=== PATIENT | male | born 1950 | race Caucasian/White ===

== ENCOUNTER 2016-04-03 09:57 | Observation (INO) | payer MEDICARE ==
[~2016-04-03] VITALS: Ht 165.1 cm; Wt 78.2 kg
[~2016-04-03 09:57] MED LIST: /PANT40TA PO; /SUCR1TA PO; /WARF25TA PO; ACET65TA PO; ASPI1TAB PO; BENA25CA2 PO; CARAFATE PO; COUM2.5T11 PO; FLOM5CAP PO; LABE10TAB PO; NUCY50TA9 PO; No Historical Meds; OXYC-299 PO; PANT40TA2 PO; PERC5TAB8 PO; VITA200016 PO; VITATAB11 PO
[2016-04-03 10:47] LABS: INR 1.8
[2016-04-03 10:51] LABS: ANION GAP 8 MEQ/L (8-16); BLOOD UREA NITROGEN 31 MG/DL (7-18); CALCIUM LEVEL 8.7 MG/DL (8.8-10.2); CARBON DIOXIDE LEVEL 30 MEQ/L (21-32); CHLORIDE LEVEL 100 MEQ/L (98-107); CREATININE FOR GFR 2.08 MG/DL (0.70-1.30); GLOMERULAR FILTRATION RATE 34.3 (>49); GLUCOSE, FASTING 127 MG/DL (80-110); POTASSIUM SERUM 3.9 MEQ/L (3.5-5.1); SODIUM LEVEL 138 MEQ/L (136-145)
[2016-04-03 10:53] LABS: BASO # 0.1 K/mm3 (0.0-0.2); BASO % 0.4 % (0.0-1.0); EOS # 0.4 K/mm3 (0.0-0.50); EOS % 2.5 % (0.0-3.0); LARGE UNSTAINED CELL # 0.1 K/mm3 (0.0-0.4); LARGE UNSTAINED CELL % 0.4 % (0.0-4.0); MEAN CORPUSCULAR HEMOGLOBIN 28.4 pg (27.0-33.0); MONO % 6.9 % (0.0-5.0); NEUTROPHILS # 11.7 K/mm3 (1.8-7.7); NEUTROPHILS % 82.8 % (36.0-66.0); PLATELET COUNT, AUTOMATED 260 k/mm3 (150-450); WHITE BLOOD COUNT 14.1 K/mm3 (4.0-10.0)
[2016-04-03] MEDS ORDERED: HYDROmorphone HCL 1 MG/ML SYRINGE (J1170) As Ordered ONE ×3 (11:08→14:25)
[2016-04-03] MEDS ORDERED: TRAM50TA2 PO (12:36)
[2016-04-03] MEDS ORDERED: COUM1TAB17 PO (12:36)
[2016-04-03] MEDS ORDERED: DIPH25CA PO (12:36)
[2016-04-03] MEDS ORDERED: VITA400C2 PO (12:36)
[2016-04-03] MEDS ORDERED: BENA25CA4 PO (12:37)
--- NOTE | 2016-04-03 12:38 | REP ---
RIGHT UPPER EXTREMITY DUPLEX VENOUS ULTRASOUND: HISTORY: Swelling, recent surgery, pain. Question venous thrombosis. FINDINGS: There is no evidence of thrombus in the right subclavian, internal jugular, brachial, basilic or cephalic veins. Color flow imaging is homogeneous. The veins are anechoic and compressible. IMPRESSION: No evidence of venous thrombosis right upper extremity. Signed by Gerald Painting MD 04/03/2016 02:28 P
[2016-04-03 12:52] LABS: ERYTHROCYTE SEDIMENTATION RATE 43 mm/hr (0-20)
--- NOTE | 2016-04-03 13:51 | REP ---
RIGHT WRIST SERIES: Four views. HISTORY: Swelling. Comparison right wrist views are from January 10, 2014. FINDINGS: There is moderate dorsal soft tissue swelling over the carpus. There are chronic arthritic changes with radiocarpal narrowing and sclerosis as seen on the 2014 prior study. 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 These findings are unchanged. IMPRESSION: Chronic arthropathy involving the radiocarpal articulation and the intercarpal articulations. 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 Subcortical cysts are seen in the carpal bones as before. There is moderate dorsal carpal swelling. Signed by Gerald Painting MD 04/03/2016 02:28 P
--- NOTE | 2016-04-03 13:53 | REP ---
CHEST X-RAY: Two views. HISTORY: Near-syncope. Comparison study February 05, 2016. FINDINGS: The lungs are well inflated and clear. Pleural angles are sharp. Heart size is normal. Pulmonary vasculature is not increased. No significant bony abnormality is seen. IMPRESSION: No acute disease. Signed by Gerald Painting MD 04/03/2016 02:28 P
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
[2016-04-03] MEDS ORDERED: WARFARIN SOD 5 MG TAB PO SCH (17:00)
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
[2016-04-03 18:45] VITALS: BP 144/92
[2016-04-03] MEDS: traMADol 50 MG TAB PO PRN (18:55)
--- NOTE | 2016-04-03 19:08 | ECGEPIP ---
Stationary ECG Study [facility] - ED Test Date: 2016-04-03 Pat Name: TERRI CHUA Department: Room: [place] [address] Gender: M Top Knitter: ba : 1950 Requested By: Fara Guevara Order Number: [id number] Reading MD: Fara Guevara Measurements Intervals [place] Rate: 85 P: 53 OK: 133 QRS: 23 QRSD: 86 T: 52 QT: 368 QTc: 438 Interpretive Statements SINUS RHYTHM NSTTW ABNORMALITY INCREASED RATE 02/05/16 Electronically Signed On 04-03-2016 19:08:08 EST by Fara Guevara
[2016-04-03] MEDS: PANTOPRAZOLE 40MG TAB (PROTONIX) PO SCH (19:42)
[2016-04-03 20:28] VITALS: BP 158/84
[2016-04-03] MEDS: LABETALOL 100 MG TAB PO SCH (21:00)
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
[2016-04-03] MEDS: ACETAMINOPHEN TAB 650MG DOSE (2X325MG) PO PRN (21:54)
[2016-04-03] MEDS: CEFTAROLINE FOSAMIL 400 MG in D5W MINI-BAG PLUS 50 ML IV SCH (23:18)
[2016-04-03 23:59] VITALS: BP 139/82
[2016-04-04] MEDS ORDERED: SLF 3 ML SYR IV PRN (02:00)
[2016-04-04 04:42] LABS: BASO % 0.3 % (0.0-1.0); EOS # 0.2 K/mm3 (0.0-0.50); EOS % 2.2 % (0.0-3.0); LARGE UNSTAINED CELL # 0.1 K/mm3 (0.0-0.4); LARGE UNSTAINED CELL % 0.9 % (0.0-4.0); LYMPH # 1.1 K/mm3 (1.5-4.5); LYMPH % 9.4 % (24.0-44.0); MEAN CORPUSCULAR HEMOGLOBIN 27.5 pg (27.0-33.0); MEAN CORPUSCULAR HGB CONC 32.7 g/dl (32.0-36.5); MEAN CORPUSCULAR VOLUME 84.2 fl (80.0-96.0); MONO # 0.8 K/mm3 (0.0-0.8); MONO % 7.5 % (0.0-5.0); NEUTROPHILS # 8.6 K/mm3 (1.8-7.7); NEUTROPHILS % 79.7 % (36.0-66.0); PLATELET COUNT, AUTOMATED 242 k/mm3 (150-450); RED CELL DISTRIBUTION WIDTH 14.1 % (11.5-14.5); WHITE BLOOD COUNT 10.7 K/mm3 (4.0-10.0)
[2016-04-04 04:58] LABS: ALBUMIN 2.9 GM/DL (3.2-5.2); ANION GAP 10 MEQ/L (8-16); BLOOD UREA NITROGEN 28 MG/DL (7-18); CALCIUM LEVEL 8.3 MG/DL (8.8-10.2); CARBON DIOXIDE LEVEL 26 MEQ/L (21-32); CHLORIDE LEVEL 103 MEQ/L (98-107); GLOMERULAR FILTRATION RATE 35.9 (>49); GLUCOSE, FASTING 132 MG/DL (80-110); INR 1.68; PHOSPHORUS LEVEL 3.8 MG/DL (2.5-4.9); POTASSIUM SERUM 3.8 MEQ/L (3.5-5.1); SODIUM LEVEL 139 MEQ/L (136-145)
[2016-04-04 05:46] VITALS: BP 137/72
[2016-04-04] MEDS: SLF 3 ML SYR IV SCH ×3 (05:49→21:00)
[2016-04-04] MEDS: traMADol 50 MG TAB PO PRN ×3 (05:50→16:51)
[2016-04-04 08:00] VITALS: BP 124/74
[2016-04-04] MEDS: TAMSULOSIN 0.4 MG CAP PO SCH (08:21)
[2016-04-04] MEDS: VITAMIN D 1,000 INTERNATIONAL UNITS TABLET PO SCH (08:21)
[2016-04-04] MEDS: VITAMIN E 400 INTERNATIONAL UNITS CAP PO SCH ×2 (08:21→09:00)
[2016-04-04] MEDS: PANTOPRAZOLE 40MG TAB (PROTONIX) PO SCH (08:21)
[2016-04-04] MEDS: LABETALOL 100 MG TAB PO SCH ×2 (08:21→21:00)
[2016-04-04] MEDS: predniSONE 20 MG TAB PO SCH (09:23)
[2016-04-04] MEDS: ACETAMINOPHEN TAB 650MG DOSE (2X325MG) PO PRN ×2 (09:25→21:01)
[2016-04-04 10:30] VITALS: BP 111/62
[2016-04-04] MEDS: CEFTAROLINE FOSAMIL 400 MG in D5W MINI-BAG PLUS 50 ML IV SCH (11:48)
[2016-04-04 14:00] VITALS: BP 135/75
--- NOTE | 2016-04-04 14:59 | REP ---
MRI STUDY LEFT WRIST WITHOUT CONTRAST: HISTORY: Left hand and wrist pain swelling and tenderness. Question abscess. Technique: Axial and coronal images were acquired. The patient was unable to tolerate further imaging and declined intravenous gadolinium. Axial T2 STIR and T1 spin echo and coronal T2 STIR and T1 spin echo images were accomplished. MRI FINDINGS: Cortical and medullary bone signal intensity are normal. There are is an erosion at the dorsal aspect of the distal radius. There is another at the proximal end of the first metacarpal at the MCP joint. There are subcortical cysts or other erosive changes noted in the carpal bones elsewhere. There is mild marrow edema in the capitate and navicular bone. No fracture is seen. There is widening of the navicular lunate ligament space. There is fluid in the distal radioulnar joint mild in degree. There is no evidence of abscess. There is some synovial hypertrophy at the radiocarpal articulation most pronounced at the volar aspect of the wrist. No significant tendon sheath effusion is seen. No evidence of osteomyelitis. IMPRESSION: Evidence of chronic erosive arthropathy. Some synovial hypertrophy seen. No evidence of abscess or osteomyelitis. Signed by Gerald Painting MD 04/04/2016 03:10 P
[2016-04-04] MEDS ORDERED: WARFARIN SOD 7.5 MG TAB PO SCH (17:00)
--- NOTE | 2016-04-04 17:55 | IPN ---
DATE: 04/04/2016 SUBJECTIVE: The patient is seen and examined in the room today. The patient continues to have significant pain of the right hand to the extent that the patient cannot move the right hand at all. Even mild touch or pressure causes significant tenderness. The patient also noted have intermittent pain radiating from the right shoulder down to the right elbow. The patient denies any history of gout, denies any significant history of autoimmune disease. The patient never had a similar symptom in the past. The patient was down in the MRI suite previously; however, due to the involuntary limb movement, the patient was not able to tolerate the MRI. OBJECTIVE: VITAL SIGNS: Temperature is 97.4, pulse 79, respirations 18, blood pressure 111/62, pulse oximetry 95% on room air. GENERAL: Moderate distress secondary to the right hand swelling and erythema and pain. The patient is alert and oriented times three. HEENT: Normocephalic, atraumatic. Extraocular motor grossly intact. CARDIOVASCULAR: Positive S1, S2. Regular rate. LUNGS: Clear to auscultation bilaterally. ABDOMEN: Soft, nontender, nondistended. Bowel sounds present. No rebound, no guarding. EXTREMITIES: Severe pain to palpation of the right hand around the right wrist and the right fingers. Positive significant erythema noted. No obvious fluctuance was able to be palpated. There is point tenderness around the posterior right shoulder. No lower extremity edema. No sign of cyanosis. LABORATORY DATA: WBC is 10.7, hemoglobin 10.4, hematocrit 31.7, platelet count 242. Sodium is 139, potassium 3.8, chloride 103, carbon dioxide 26, BUN 28, creatinine 2, GFR is 35.9, fasting glucose 132, calcium 8.3, phosphorus 3.8. Total CK is 40, troponin I is less than 0.02. C-reactive protein is 16.4. Albumin 2.9. PT is 19.9, INR is 1.68. MICROBIOLOGY: Rheumatoid factor is 116. Anti-CCP level is pending. LATANYA level is pending. Lyme disease screening is pending. Blood culture is pending times two sets. ASSESSMENT AND PLAN: 1. Right hand swelling and erythema. Due to concern for infection, the patient is empirically started on a Teflaro. The patient has elevated white blood cells (WBC), erythrocyte sedimentation rate (ESR), and C-reactive protein (CRP). The patient also has an elevated rheumatoid factor. Currently we are awaiting for confirmatory tests for anti-cyclic citrullinated peptide (CCP) to rule in rheumatoid arthritis. The patient's presentation includes a differential of gout versus septic arthritis, rheumatoid arthritis, Lyme disease. We will achieve pain control with Tylenol. The patient was given a short course of steroids. The patient had recurrence of symptoms previously and patient stated the prednisone significant benefit to his pain and swelling. Once we get the pain in better control, we will attempt an MRI of the hand and wrist again. I will consult orthopedic surgery for assistance. 2. Deep venous thrombosis (DVT) of the right upper extremity. The patient has a subtherapeutic international normalized ratio (INR). The patient is on heparin. Repeated ultrasound does not show evidence of the DVT currently. 3. Hypertension. Blood pressure in the satisfactory range. The patient is on labetalol. 4. Benign prostatic hypertrophy (BPH) on Flomax. 5. History of vitamin D deficiency. 6. Degenerative joint disease, status post bilateral hip replacement. 7. History of focal interstitial metaplasia on esophagogastroduodenoscopy (EGD) in 2014. 8. Near syncope secondary to severe pain on the right hand. The patient is being monitored on telemetry for 24 hours. No significant events are reported, but cause of the near syncope due to severe stress. 9. Chronic kidney disease stage III. Continue to monitor. 10. Gastroesophageal reflux disease on proton pump inhibitor (PPI). 11. Deep venous thrombosis (DVT) prophylaxis. The patient will be on heparin bridging; currently warfarin therapeutic. Warfarin dose is being increased.
[2016-04-04] MEDS: HEPARIN SOD (PORCINE) 5000 UNITS/ML VIAL SQ SCH (21:00)
[2016-04-04 22:00] VITALS: BP 120/52
[2016-04-05 06:00] VITALS: BP 110/58
[2016-04-05] MEDS: HEPARIN SOD (PORCINE) 5000 UNITS/ML VIAL SQ SCH ×2 (06:17→14:26)
[2016-04-05] MEDS: SLF 3 ML SYR IV SCH ×2 (06:18→14:27)
[2016-04-05] MEDS: traMADol 50 MG TAB PO PRN ×2 (06:22→12:23)
[2016-04-05 06:55] LABS: BASO % 0.1 % (0.0-1.0); EOS % 0.3 % (0.0-3.0); LARGE UNSTAINED CELL # 0.1 K/mm3 (0.0-0.4); LARGE UNSTAINED CELL % 0.9 % (0.0-4.0); LYMPH # 1.3 K/mm3 (1.5-4.5); LYMPH % 9.3 % (24.0-44.0); MEAN CORPUSCULAR HEMOGLOBIN 27.8 pg (27.0-33.0); MEAN CORPUSCULAR HGB CONC 32.8 g/dl (32.0-36.5); MEAN CORPUSCULAR VOLUME 84.8 fl (80.0-96.0); MONO # 0.6 K/mm3 (0.0-0.8); MONO % 4.8 % (0.0-5.0); NEUTROPHILS % 84.5 % (36.0-66.0); PLATELET COUNT, AUTOMATED 245 k/mm3 (150-450); RED CELL DISTRIBUTION WIDTH 14.3 % (11.5-14.5)
[2016-04-05 06:58] LABS: INR 2.03
[2016-04-05 07:07] LABS: ALBUMIN 2.8 GM/DL (3.2-5.2); CALCIUM LEVEL 8.6 MG/DL (8.8-10.2); CREATININE FOR GFR 1.81 MG/DL (0.70-1.30); GLOMERULAR FILTRATION RATE 40.3 (>49); PHOSPHORUS LEVEL 3.6 MG/DL (2.5-4.9); POTASSIUM SERUM 3.8 MEQ/L (3.5-5.1)
--- NOTE | 2016-04-05 08:31 | CR ---
DATE OF CONSULTATION: 04/04/2016 65-year-old male, he is about 1-1/2 months status post right total hip arthroplasty, complicated, by his report, but upper extremity thrombosis and more recently weakness, twitching and pain, severe searing pain in his right upper extremity. I have been asked to evaluate him for diagnosis of his symptoms of his right upper extremity. He reports the weakness and pain had gotten worse since his diagnosis of a right upper extremity thrombus and was worsening. His primary medical team had given him prednisone, which has already started helping his symptoms. PHYSICAL EXAMINATION : He does have some swelling and twitching throughout his right upper extremity. No redness. No obvious fluctuance or evidence of infection. He is sensate throughout the radial, ulnar, median nerve distribution. His hand is well perfused. He has burning pain in the region of the ulnar styloid and generally around his hand and forearm and up in his shoulder. His inflammatory indices are elevated. 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 RECOMMENDATION: My recommendation at this stage would be continued antiinflammatory medications, such as prednisone and observation therapy with an expectation of complete resolution over time, which is the case for most episodes of brachial neuritis.
[2016-04-05] MEDS: PANTOPRAZOLE 40MG TAB (PROTONIX) PO SCH (08:33)
[2016-04-05 08:34] VITALS: BP 114/64
[2016-04-05] MEDS: VITAMIN E 400 INTERNATIONAL UNITS CAP PO SCH (08:34)
[2016-04-05] MEDS: TAMSULOSIN 0.4 MG CAP PO SCH (08:34)
[2016-04-05] MEDS: predniSONE 20 MG TAB PO SCH (08:34)
[2016-04-05] MEDS: VITAMIN D 1,000 INTERNATIONAL UNITS TABLET PO SCH (08:34)
[2016-04-05] MEDS: LABETALOL 100 MG TAB PO SCH (08:34)
[2016-04-05] MEDS ORDERED: DELT1TAB PO (13:55)
[2016-04-05] MEDS ORDERED: TRAM50TA2 PO (13:55)
[2016-04-05] MEDS ORDERED: MAPA325T2 PO (13:55)
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
--- NOTE | 2016-04-05 21:37 | DSES ---
DATE OF ADMISSION: 04/03/2016 DATE OF DISCHARGE: 04/05/2016 PRIMARY CARE PROVIDER: Eugenie Valencia NP CONSULTANTS: Orthopedic surgeon, Dr. Kelly. PROCEDURES: None. COMPLICATIONS: None. ADMISSION/DISCHARGE DIAGNOSES: 1. Right hand swelling and erythema. 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 2. History of deep venous thrombosis (DVT) of the right upper extremity. 3. Hypertension. 4. Benign prostatic hypertrophy (BPH). 5. History of vitamin D deficiency. 6. Degenerative disc disease, status post bilateral hip placement. 7. History of focal interstitial metaplasia, esophagogastroduodenoscopy (EGD) in 2014. 8. Near-syncope secondary to severe pain from the right hand. 9. Chronic kidney disease, stage III. 10. Gastroesophageal reflux disease. HOSPITALIZATION COURSE: The patient is 65-year-old male, has recent hospitalization for hip placement presented to [facility] on April 03, 2016 after syncope events. The patient's other significant history includes patient's worsening right hand swelling and tenderness to the point that the patient cannot even move his right hand and he cannot move the finger digits. The patient is admitted to cardiac telemetry and started on syncope workup. An MRI of the hand and wrist was ordered, however, due to involuntary reflex and uncontrolled extremity movements, the patient was not able to tolerate the MRI on the first day. Initially the patient is started on empiric antibiotics with Teflaro due to elevated inflammatory markers such as WBC, CRP, and erythrocyte sedimentation rate and due to high probability of inflammatory cause of patient' s presentation, the patient started on a trial of prednisone. Orthopedic team, Dr. Kelly was consulted. 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 Later, the patient's diagnostic workup came back positive for rheumatoid arthritis. Continued to have elevated CRP, ESR and WBC. However, the patient started to show great improvement symptomatically with prednisone after discussion, the patient was determined stable for discharge with recommendation to follow with [facility] care provider within one week and to followup with pending laboratory test such as anti-CCP, LATANYA and Lyme disease. The patient has a history of right upper extremity DVT. The patient has been anticoagulated with warfarin. During this hospitalization, patient had ultrasound done, the patient did have the resolution of right DVT. LABORATORY DATA: WBC 13, hemoglobin 10.4, hematocrit 31.6, platelet count 245. Sodium 141, potassium 3.8, chloride 104, carbon dioxide 27, BUN 30, creatinine 1.8, GFR 40.3, fasting glucose 148. Calcium is 8.6, phosphorous 3.6, C-reactive protein 14.6, albumin 2.8. PT 23, INR is 2.03. Rheumatoid factor is 116. Anti-CCP level is pending. LATANYA screening is pending. Lyme disease screening is pending. MICROBIOLOGY: Blood cultures negative after 24 hours times two sets. IMAGING STUDY: Right upper extremity ultrasound showed no evidence of venous thrombosis. Wrist x-ray: Showed chronic arthropathy involving the radiocarpal articulation and the intercarpal articulation. 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 Subcortical cysts are seen in the carpal bone as before. There is moderate dorsal carpal swelling. Chest x-ray: Showed no acute disease. Upper extremity MRI: Showed evidence of chronic erosive arthropathy. Some synovial hypertrophy. No evidence of abscess or osteomyelitis. DISCHARGE MEDICATION: - Tylenol 650 mg by mouth every 6 hour as needed - prednisone 40 mg by mouth every day for six pills - tramadol 100 mg by mouth every 6 hours as needed for 20 pills - Benadryl 25 mg by mouth every 6 hours as needed for itching - labetalol 100 mg by mouth twice a day - pantoprazole 40 mg by mouth every day - Flomax 0.4 mg by mouth every day - vitamin D 2000 units by mouth every day - vitamin E 400 units by mouth every day - warfarin 5 mg by mouth nightly DISCHARGE INSTRUCTIONS: Discontinue lines. Discharge home. Activity as tolerated. Low salt diet as tolerated. Patient should followup with primary care provider Eugenie Valencia within one week to review all the diagnostic tests. The patient recommended to continue taking the prednisone and adjusted by the primary care provider. The patient can take as needed NSAID. Due to the chronic kidney disease, Tylenol was used and patient was advised to avoid nephrotoxic medications. DISCHARGE CONDITION: Stable. TIME SPENT ON DISCHARGE: Greater than 30 minutes. MTDD
[2016-04-07 00:06] LABS: Lyme Disease IgG/IgM Antibodie <0.91 ISR (0.00-0.90); Lyme Disease IgM Ab Quantitati <0.80 index (0.00-0.79)
== END 2016-04-05 14:50 | disposition home or self-care (01) ==
LOC: M ED 09:57 → M ED INP 14:30 → M MS5PR 17:08 → M PCU 18:38 → M MS5PR 04-04 10:18
PROVIDERS: ADMIT Internal Medicine; ATTEND Internal Medicine
DX: M79.89 Other specified soft tissue disorders (principal); R55 Syncope and collapse; Z98.890 Other specified postprocedural states; Z96.643 Presence of artificial hip joint, bilateral; Z86.718 Personal history of other venous thrombosis and embolism; M25.541 Pain in joints of right hand; I12.9 Hypertensive chronic kidney disease with stage 1 through stage 4 chronic kidney disease, or unspecified chronic kidney disease; E55.9 Vitamin D deficiency, unspecified; M19.90 Unspecified osteoarthritis, unspecified site; N18.3 Chronic kidney disease, stage 3 (moderate); K21.9 Gastro-esophageal reflux disease without esophagitis; Z87.19 Personal history of other diseases of the digestive system; N40.0 Benign prostatic hyperplasia without lower urinary tract symptoms; Z79.899 Other long term (current) drug therapy
CPT/HCPCS: 36415; 71020; 73110; 73218; 73221; 80048; 80069; 82550; 82553; 84443; 84484; 84550; 85025; 85610; 85652; 85730; 86038; 86140; 86200; 86431; 86617; 87040; 93005; 93971; 96372; 96374; 96375; 96376; 97162; 99285; G0378; G8978; G8979; G8980; J1170

== ENCOUNTER → 2016-05-21 | Outpatient (REF) | payer MEDICARE ==
[~2016-05-21] MED LIST changes: +BENA25CA4 PO; +COUM1TAB17 PO; +DELT1TAB PO; +DIPH25CA PO; +MAPA325T2 PO; +TRAM50TA2 PO; +VITA400C2 PO
== END ==
LOC: M LAB REF 13:34
PROVIDERS: ATTEND Physician Assistant
DX: J02.9 Acute pharyngitis, unspecified (principal); S16.1XXA Strain of muscle, fascia and tendon at neck level, initial encounter; X58.XXXA Exposure to other specified factors, initial encounter; Y92.9 Unspecified place or not applicable; Y93.9 Activity, unspecified; Y99.9 Unspecified external cause status

== ENCOUNTER → 2016-12-02 | Outpatient (CLI) | payer MEDICARE ==
[~2016-12-02] MED LIST changes: -COUM2.5T11 PO; +COUM2.5T17 PO; +NUCY50TA6 PO; -NUCY50TA9 PO; +OXYC-141 PO; -OXYC-299 PO; -VITA400C2 PO; +VITA400C7 PO
--- NOTE | 2016-12-02 10:54 | REP ---
UNILATERAL RIGHT RIBS/PA CHEST, FIVE VIEWS: HISTORY: Pain. COMPARISON: 04/03/2016. The lungs are clear. The heart is normal in size. The pulmonary vasculature is normal in appearance. The bony structure is intact. IMPRESSION: No acute disease. Signed by Domo Hawkins MD 12/02/2016 10:55 A
== END ==
LOC: M WUC 10:12
PROVIDERS: ATTEND Nurse Practitioner Adult Health
DX: R07.89 Other chest pain (principal)

== ENCOUNTER → 2017-03-02 | Outpatient (REF) | payer MEDICARE ==
[2017-03-02 14:17] LABS: URIC ACID 4.9 MG/DL (3.5-7.2)
== END ==
LOC: M LAB REF 13:25
DX: M25.50 Pain in unspecified joint (principal)
CPT/HCPCS: 84550

== ENCOUNTER → 2017-06-14 | Outpatient (REF) | payer MEDICARE ==
[2017-06-14 17:51] LABS: PTH INTACT 65.3 PG/ML (18.5-88.0)
== END ==
LOC: M LAB REF 16:44
DX: N18.3 Chronic kidney disease, stage 3 (moderate) (principal)
CPT/HCPCS: 84100

== ENCOUNTER → 2018-07-07 | Outpatient (CLI) | payer MEDICARE ==
[~2018-07-07] MED LIST changes: -/PANT40TA PO; -/SUCR1TA PO; -/WARF25TA PO; -ASPI1TAB PO; +ASPI81TA26 PO; +COUM1TAB18 PO; +FLOM0.4C39 PO; -FLOM5CAP PO; +NUCY50TA19 PO; -NUCY50TA6 PO; -PANT40TA2 PO; +PANT40TA3 PO; +PROT1TAB2 PO; +SUCR1TAB56 PO
[2018-07-07 09:36] LABS: INR 1.03; PROTHROMBIN TIME 13.6 SECONDS (12.1-14.4)
[2018-07-07 09:37] LABS: PARTIAL THROMBOPLASTIN TIME 26.4 SECONDS (25.4-37.6)
[2018-07-07 09:40] LABS: COLLAGEN EPINEPHRINE 121 SECONDS (74-162)
== END ==
LOC: M LAB 08:55
PROVIDERS: ATTEND Physical Medicine & Rehabilitation
DX: Z01.812 Encounter for preprocedural laboratory examination (principal); Z79.01 Long term (current) use of anticoagulants

== ENCOUNTER → 2018-09-01 | Outpatient (REF) | payer MEDICARE ==
[2018-09-01 13:42] LABS: AMPHETAMINES URINE REFLEX NEGATIVE (NEGATIVE); BARBITURATES URINE REFLEX NEGATIVE (NEGATIVE); BENZODIAZEPINES URINE REFLEX NEGATIVE (NEGATIVE); CANNABINOIDS URINE REFLEX NEGATIVE (NEGATIVE); COCAINE METABOLITE URINE REFLE NEGATIVE (NEGATIVE); METHADONE URINE REFLEX NEGATIVE (NEGATIVE); PHENCYCLIDINE URINE REFLEX NEGATIVE (NEGATIVE)
[2018-09-04 07:45] LABS: OPIATES URINE REFLEX PENDING CONFIRMATION (NEGATIVE)
[2018-09-06 14:29] LABS: Codeine Positive (.); GC Codeine >10000 ng/mL (Cutoff=200); GC Morphine 1588 ng/mL (Cutoff=200); Morphine Positive (.); Opiates Positive (.)
== END ==
LOC: M LABDRAW1 12:37
PROVIDERS: ATTEND Physical Medicine & Rehabilitation
DX: M43.17 Spondylolisthesis, lumbosacral region (principal); Z79.01 Long term (current) use of anticoagulants; Z79.899 Other long term (current) drug therapy
CPT/HCPCS: 80307; G0480

== ENCOUNTER → 2018-09-12 | Outpatient (REF) | payer MEDICARE ==
[~2018-09-12] MED LIST changes: -DIPH25CA PO; +DIPH25CA32 PO
[2018-09-12 17:16] LABS: PHOSPHORUS LEVEL 3.4 MG/DL (2.5-4.9); URIC ACID 5.7 MG/DL (3.5-7.2)
[2018-09-12 17:54] LABS: PTH INTACT 71.8 PG/ML (18.5-88.0)
== END ==
LOC: M LAB REF 16:42
PROVIDERS: ATTEND Nurse Practitioner Adult Health
DX: M25.50 Pain in unspecified joint (principal); N18.3 Chronic kidney disease, stage 3 (moderate); N25.81 Secondary hyperparathyroidism of renal origin

== ENCOUNTER → 2020-01-15 | Outpatient (REF) | payer MEDICARE ==
[~2020-01-15] MED LIST changes: -MAPA325T2 PO; +MAPA325T8 PO; +PANT40TA29 PO; -PANT40TA3 PO
== END ==
LOC: M LAB REF 12:12
PROVIDERS: ATTEND Nurse Practitioner Adult Health
DX: I12.9 Hypertensive chronic kidney disease with stage 1 through stage 4 chronic kidney disease, or unspecified chronic kidney disease (principal)

== ENCOUNTER → 2021-07-03 | Outpatient (REF) | payer MEDICARE ==
[~2021-07-03] MED LIST changes: +LABE100T4 PO; -LABE10TAB PO
[2021-07-03 17:42] LABS: TOTAL PROTEIN 6.5 GM/DL (6.4-8.2)
== END ==
LOC: M LAB REF 16:42
PROVIDERS: ATTEND Internal Medicine Nephrology
DX: N18.4 Chronic kidney disease, stage 4 (severe) (principal)

== ENCOUNTER → 2022-07-21 | Outpatient (REF) | payer MEDICARE ==
[~2022-07-21] MED LIST changes: +DIPH-435 PO; -DIPH25CA32 PO; -LABE100T4 PO; +LABE100T6 PO
== END ==
LOC: M LAB REF 12:32
PROVIDERS: ATTEND Nurse Practitioner Adult Health
DX: N25.81 Secondary hyperparathyroidism of renal origin (principal); N18.4 Chronic kidney disease, stage 4 (severe)

== ENCOUNTER → 2022-09-27 | Outpatient (CLI) | payer MEDICARE | LOC: M RAD 17:21 | PROVIDERS: ATTEND Student in an Organized Health Care Education/Training Program | DX: S51.832A Puncture wound without foreign body of left forearm, initial encounter (principal); M19.032 Primary osteoarthritis, left wrist; X58.XXXA Exposure to other specified factors, initial encounter; Y92.9 Unspecified place or not applicable; Y93.9 Activity, unspecified; Y99.9 Unspecified external cause status ==

== ENCOUNTER → 2023-03-10 | Outpatient (REF) | payer MEDICARE ==
[2023-03-10 19:40] LABS: FERRITIN 217.6 NG/ML (10.5-307.3)
== END ==
LOC: M LAB REF 16:19
PROVIDERS: ATTEND Internal Medicine
DX: D64.9 Anemia, unspecified (principal)

== ENCOUNTER → 2023-08-02 | Outpatient (REF) | payer MEDICARE ==
[~2023-08-02] MED LIST changes: +CLOP75TA2 PO; +FAMO1TAB11 PO; +MAGN400T2 PO; +METO1TAB33 PO; +NITR0.4S14; +PRAV20TA2 PO; +ROSU20TA61 PO; +TIZA2TA PO; +VITA100093 PO; +VITA400T26 PO
[2023-08-02 19:57] LABS: PERCENT SATURATION 34.7 % (19.7-50.0)
[2023-08-02 20:00] LABS: FERRITIN 126.3 NG/ML (10.5-307.3)
== END ==
LOC: M LAB REF 18:22
PROVIDERS: ATTEND Internal Medicine
DX: D64.9 Anemia, unspecified (principal)

== ENCOUNTER 2023-08-08 08:45 | Day surgery (SDC) | payer MEDICARE ==
[~2023-08-08] VITALS: Ht 165.1 cm; Wt 75.3 kg
[~2023-08-08 08:45] MED LIST changes: +NS 1,000 ML IV ONE
[2023-08-08] MEDS ORDERED: LIDOCAINE 2% 100MG/5ML SDV (FOR ANES.) As Ordered ONE (08:51)
[2023-08-08] MEDS ORDERED: propofoL 200 MG/20 ML VIAL As Ordered ONE (08:51)
[2023-08-08 11:00] VITALS: BP 111/59; TEMP 96.8; O2SAT 96
== END 2023-08-08 11:32 | disposition home or self-care (01) ==
LOC: M OPP 08:45
PROVIDERS: ATTEND Internal Medicine Gastroenterology
DX: Z12.11 Encounter for screening for malignant neoplasm of colon (principal); Z86.010 Personal history of colon polyps; K64.0 First degree hemorrhoids; K57.30 Diverticulosis of large intestine without perforation or abscess without bleeding; D12.8 Benign neoplasm of rectum; K22.89 Other specified disease of esophagus; K22.70 Barrett's esophagus without dysplasia; F17.220 Nicotine dependence, chewing tobacco, uncomplicated; Z79.82 Long term (current) use of aspirin; Z79.899 Other long term (current) drug therapy; Z95.5 Presence of coronary angioplasty implant and graft; Z88.5 Allergy status to narcotic agent; I25.10 Atherosclerotic heart disease of native coronary artery without angina pectoris; Z86.74 Personal history of sudden cardiac arrest

== ENCOUNTER 2024-10-15 06:17 | Emergency (ER) | payer MEDICARE ==
[~2024-10-15] VITALS: Ht 165.1 cm; Wt 73.0 kg
[~2024-10-15 06:17] MED LIST changes: +ERYT5OIN25 OP; -FLOM0.4C39 PO; -NS 1,000 ML IV ONE; -PRAV20TA2 PO; +PRAV20TA78 PO; -ROSU20TA61 PO; +ROSU20TA86 PO; +TAMS-18 PO
[2024-10-15 06:19] VITALS: TEMP 97.1
[2024-10-15 07:15] LABS: BASO # 0.1 10^3/uL (0.0-0.2); BASO % 0.8 % (0.0-1.0); EOS # 0.2 10^3/uL (0.0-0.5); EOS % 1.9 % (0.0-3.0); LYMPH # 0.8 10^3/uL (1.5-5.0); LYMPH % 10.2 % (24.0-44.0); MONO # 0.4 10^3/uL (0.0-0.8); MONO % 5.5 % (2.0-8.0); NEUTROPHILS # 6.3 10^3/uL (1.5-8.5); NEUTROPHILS % 81.2 % (36.0-66.0); PLATELET COUNT, AUTOMATED 189 10^3/uL (150-450)
[2024-10-15 07:40] LABS: CPK CREATINE PHOSPHOKINASE 490 U/L (46-171)
[2024-10-15 07:41] LABS: ALT/SGPT 28 U/L (7.0-40); AST/SGOT 30 U/L (<34); CALCIUM LEVEL 8.4 MG/DL (8.3-10.6); CARBON DIOXIDE LEVEL 23 MMOL/L (20-31); CHLORIDE LEVEL 108 MMOL/L (98-107); CK-MB VALUE MASS 19.9 NG/ML (<3.6); CREATININE FOR GFR 2.68 MG/DL (0.70-1.30); GLOMERULAR FILTRATION RATE 24.2 (>42); MB/CK RELATIVE INDEX 4.06 (< OR =4); POTASSIUM SERUM 4.8 MMOL/L (3.5-5.1); SODIUM LEVEL 142 MMOL/L (136-145)
[2024-10-15 09:54] LABS: CK-MB VALUE MASS 20.6 NG/ML (<3.6)
[2024-10-15 09:55] LABS: CPK CREATINE PHOSPHOKINASE 481.0 U/L (46-171); MB/CK RELATIVE INDEX 4.28 (< OR =4)
[2024-10-15 10:32] LABS: KETONE, URINE AUTO RFX NEGATIVE (NEGATIVE); LEUKOCYTE ESTERASE UR AUTO RFX NEGATIVE (NEGATIVE); NITRITE, URINE AUTO RFX NEGATIVE (NEGATIVE); RBC, URINE AUTO RFX 0 /HPF (0-3); SQUAM EPITHELIAL CELL UR AURFX 0 /HPF (0-6); WBC, URINE AUTO RFX 0 /HPF (0-3)
[2024-10-15 11:30] VITALS: BP 148/83; O2SAT 99
[2024-10-15] MEDS ORDERED: COLA100C5 PO (11:30)
[2024-10-15] MEDS: MAGNESIUM CITRATE 300 ML BTL PO ONE (11:45)
== END 2024-10-15 11:52 | disposition home or self-care (01) ==
LOC: M ED 06:17
DX: R10.9 Unspecified abdominal pain (principal); R00.1 Bradycardia, unspecified; N18.6 End stage renal disease; Z88.5 Allergy status to narcotic agent; Z79.2 Long term (current) use of antibiotics; Z79.899 Other long term (current) drug therapy

== ENCOUNTER → 2025-01-21 | Outpatient (CLI) | payer MEDICARE ==
[~2025-01-21] VITALS: Ht 165.1 cm; Wt 71.8 kg
[~2025-01-21] MED LIST changes: +CAPE1TAB PO; +CAPE1TAB2 PO; +COLA100C5 PO; +DICL100G10 TOP; -LABE100T6 PO; +LABE100T91 PO; +MAGN250T17 PO; +MORP20SO PO; +ONDA-84 PO; +PANT20TA6 PO; +ROSU20TA86
[2025-01-21 15:31] VITALS: BP 138/70; O2SAT 98
== END ==
LOC: M PAL 15:12
PROVIDERS: ATTEND Physician Assistant
DX: Z51.5 Encounter for palliative care (principal); Z66 Do not resuscitate; C18.1 Malignant neoplasm of appendix; C78.6 Secondary malignant neoplasm of retroperitoneum and peritoneum; Z88.5 Allergy status to narcotic agent; Z79.899 Other long term (current) drug therapy; Z79.82 Long term (current) use of aspirin

== ENCOUNTER → 2025-01-30 | Outpatient (REF) | payer MEDICARE ==
[~2025-01-30] MED LIST changes: +MORP1SOL4 PO
[2025-01-30 10:16] LABS: BASO # 0.1 10^3/uL (0.0-0.2); BASO % 0.9 % (0.0-1.0); EOS # 0.2 10^3/uL (0.0-0.5); EOS % 2.8 % (0.0-3.0); LYMPH # 1.1 10^3/uL (1.5-5.0); LYMPH % 14.4 % (24.0-44.0); MONO # 0.4 10^3/uL (0.0-0.8); MONO % 5.8 % (2.0-8.0); NEUTROPHILS # 5.8 10^3/uL (1.5-8.5); NEUTROPHILS % 75.7 % (36.0-66.0); PLATELET COUNT, AUTOMATED 241 10^3/uL (150-450)
[2025-01-30 10:30] LABS: INR 1.13
== END ==
LOC: M LAB REF 09:52
PROVIDERS: ATTEND Student in an Organized Health Care Education/Training Program
DX: C18.1 Malignant neoplasm of appendix (principal); C17.8 Malignant neoplasm of overlapping sites of small intestine; Z45.2 Encounter for adjustment and management of vascular access device

== ENCOUNTER → 2025-02-05 | Outpatient (CLI) | payer MEDICARE ==
[~2025-02-05] MED LIST changes: +PEPC1TAB5 PO
== END ==
LOC: M PLARAD 08:42
PROVIDERS: ATTEND Student in an Organized Health Care Education/Training Program
DX: C18.1 Malignant neoplasm of appendix (principal)
CPT/HCPCS: 78815; A9552

== ENCOUNTER → 2025-02-11 | Outpatient (CLI) | payer MEDICARE ==
[~2025-02-11] MED LIST changes: +DULO1CAP6 PO; +LIDO100S29 SSP; +MAGICMW SSP; +REGL5TAB2 PO; +VALT500T PO
== END ==
LOC: M ONCR 13:50
PROVIDERS: ATTEND General Practice
DX: C78.6 Secondary malignant neoplasm of retroperitoneum and peritoneum (principal); C18.1 Malignant neoplasm of appendix; C78.89 Secondary malignant neoplasm of other digestive organs; Z90.49 Acquired absence of other specified parts of digestive tract; Z88.5 Allergy status to narcotic agent; Z79.02 Long term (current) use of antithrombotics/antiplatelets; Z79.899 Other long term (current) drug therapy

== ENCOUNTER → 2025-02-11 | Outpatient (CLI) | payer MEDICARE ==
[~2025-02-11] VITALS: Ht 165.1 cm; Wt 73.3 kg
[~2025-02-11] MED LIST changes: +ATIV1TAB10 PO; +FENT12DI12 TOP; +HYDR2TAB2; +HYDR2TAB2 PO; +OLAN1TAB16 PO
[2025-02-11 11:23] VITALS: BP 118/70; O2SAT 97
== END ==
LOC: M PAL 11:04
PROVIDERS: ATTEND Physician Assistant
DX: Z51.5 Encounter for palliative care (principal); Z66 Do not resuscitate; C18.1 Malignant neoplasm of appendix; C78.6 Secondary malignant neoplasm of retroperitoneum and peritoneum; C79.89 Secondary malignant neoplasm of other specified sites; Z79.891 Long term (current) use of opiate analgesic; Z88.5 Allergy status to narcotic agent; Z79.899 Other long term (current) drug therapy
CPT/HCPCS: G0463 ×2

== ENCOUNTER → 2025-02-20 | Outpatient (CLI) | payer MEDICARE ==
[~2025-02-20] MED LIST changes: -ATIV1TAB10 PO; -FENT12DI12 TOP; -HYDR2TAB2; -HYDR2TAB2 PO; -OLAN1TAB16 PO
== END ==
LOC: M PAL 09:48
PROVIDERS: ATTEND Physician Assistant
DX: Z51.5 Encounter for palliative care (principal); Z66 Do not resuscitate; C18.1 Malignant neoplasm of appendix; C48.2 Malignant neoplasm of peritoneum, unspecified; C78.6 Secondary malignant neoplasm of retroperitoneum and peritoneum; Z79.891 Long term (current) use of opiate analgesic; Z88.5 Allergy status to narcotic agent; Z79.899 Other long term (current) drug therapy; Z79.52 Long term (current) use of systemic steroids

== ENCOUNTER → 2025-02-26 | Outpatient (CLI) | payer MEDICARE | LOC: M RAD 15:28 | PROVIDERS: ATTEND Student in an Organized Health Care Education/Training Program | DX: C18.9 Malignant neoplasm of colon, unspecified (principal) ==

== ENCOUNTER → 2025-02-27 | Outpatient (RCR) | payer MEDICARE ==
[~2025-02-27] MED LIST changes: +ATIV1TAB10 PO; +FENT12DI12 TOP; +HYDR2TAB2; +OLAN1TAB16 PO
== END ==
LOC: M ONCR 02-11 12:05
PROVIDERS: ATTEND General Practice
DX: Z51.0 Encounter for antineoplastic radiation therapy (principal); C78.6 Secondary malignant neoplasm of retroperitoneum and peritoneum